=== PATIENT | male | born 1960 | race Caucasian/White ===

== ENCOUNTER 2021-06-03 12:48 | Outpatient (CLI) | payer MEDICARE, MEDICAID, SELFPAY | END 2021-06-03 12:49 | disposition home or self-care (01) | LOC: ANHAUDIO 12:52 | DX: H90.3 Sensorineural hearing loss, bilateral (principal) | CPT/HCPCS: 92557; 92567 ==

== ENCOUNTER 2021-07-13 11:46 | Outpatient (RCR) | payer MEDICAID, MEDICARE, SELFPAY | END 2021-07-13 23:59 | disposition home or self-care (01) | LOC: ANHAUDIO 11:46 | DX: Z46.1 Encounter for fitting and adjustment of hearing aid (principal) | CPT/HCPCS: V5160; V5261; V5264 ==